=== PATIENT | female | born 1960 | race Caucasian/White ===

== ENCOUNTER → 2019-11-17 | Outpatient (CLI) | payer OTHER ==
[~2019-11-17] MED LIST: Celexa10 MG PO; DIPH50 PO; FEXPSEER PO; FLUO20 PO; Multiple Vitam1 EAC1 PO; NAPR500 PO; OXCA300 PO; VITAMIN D5000 UNI1 PO
== END | disposition home or self-care (01) ==
LOC: LAB 16:00 → LAB SHORT 16:00
DX: N89.8 Other specified noninflammatory disorders of vagina (principal)
CPT/HCPCS: 87070; 87205

== ENCOUNTER → 2021-08-10 | Outpatient (CLI) | payer BC | LOC: LAB SHORT 16:56 → LAB 16:56 | DX: R30.0 Dysuria (principal) | CPT/HCPCS: 87086 ==

== ENCOUNTER 2023-04-02 06:52 | Day surgery (SDC) | payer OTHER ==
[~2023-04-02] VITALS: Ht 165.1 cm; Wt 94.2 kg
[2023-04-02] MEDS ORDERED: ESCI10 (07:11)
[2023-04-02] MEDS ORDERED: ALBU90OI6 (07:12)
[2023-04-02] MEDS ORDERED: QVAR REDIHALE10.6 G3 (07:12)
[2023-04-02] MEDS ORDERED: AMPDEX10CR (07:12)
[2023-04-02 08:54] VITALS: BP 100/68
== END 2023-04-02 09:04 | disposition home or self-care (01) ==
LOC: ORSCSDS 06:52
PROVIDERS: Surgery
PROC: 0DB58ZX Excision of Esophagus, Via Natural or Artificial Opening Endoscopic, Diagnostic (ICD-10-PCS; principal; 2023-04-02 08:00)
PROC: 0DB78ZX Excision of Stomach, Pylorus, Via Natural or Artificial Opening Endoscopic, Diagnostic (ICD-10-PCS; principal; 2023-04-02 08:00)
PROC: 0DJD8ZZ Inspection of Lower Intestinal Tract, Via Natural or Artificial Opening Endoscopic (ICD-10-PCS; principal; 2023-04-02 08:00)
DX: Z12.11 Encounter for screening for malignant neoplasm of colon (principal); Z80.0 Family history of malignant neoplasm of digestive organs; K21.00 Gastro-esophageal reflux disease with esophagitis, without bleeding; K44.9 Diaphragmatic hernia without obstruction or gangrene; K22.2 Esophageal obstruction; E78.5 Hyperlipidemia, unspecified; J45.909 Unspecified asthma, uncomplicated; F32.A Depression, unspecified; F98.8 Other specified behavioral and emotional disorders with onset usually occurring in childhood and adolescence; Z79.899 Other long term (current) drug therapy; E66.9 Obesity, unspecified; Z68.35 Body mass index [BMI] 35.0-35.9, adult
CPT/HCPCS: 43239; G0105; 88305; 88312; 88342; J2704; J7120

== ENCOUNTER → 2024-09-13 | Outpatient (CLI) | payer OTHER ==
[~2024-09-13] MED LIST changes: +ALBU90OI6; +AMPDEX10CR; +ESCI10; +QVAR REDIHALE10.6 G3
== END ==
LOC: LAB 14:17 → LAB SHORT 14:17
DX: R30.0 Dysuria (principal)
CPT/HCPCS: 87086